=== PATIENT | female | born 1955 | race Caucasian/White ===

== ENCOUNTER 2017-04-14 15:07 | Inpatient (IN) | payer BC ==
[~2017-04-14] VITALS: Ht 162.5 cm; Wt 118.6 kg
--- NOTE | ~2017-04-14 | WRIGHTHP ---
[place], [place] PATIENT HISTORY AND PHYSICAL EXAM [facility]: [id number] UNIT #: [id number] ROOM: 428 DOCTOR: ELADIA CISNEROS MD BIRTHDATE: [birth year] DOS: 04/14/2017 HISTORY OF PRESENT ILLNESS: A 62-year-old. The patient has not been since seen in the office for about 7 years, was brought to the Emergency Room by family member stating that she is unable to walk. The patient has had significant weight loss in the last few months and has a history of diabetes, but has not been taking care of herself. Appetite is poor. She does not have any complaints of chest pain, palpitations or shortness of breath. Does not have any fever or chills. Denies having any chest pains, palpitations. She does not have any fever, chills, does not have any urinary symptoms. She feels that her feet are quite normal and she is unable to walk. She has to hold onto either furniture or people to get around. PAST MEDICAL HISTORY: Significant for history of type 2 diabetes mellitus, has not checked it for many years now. SOCIAL HISTORY: She works in a [employer] company. She is , has one son. FAMILY HISTORY: Significant for parents who have underlying heart disease. PHYSICAL EXAMINATION: GENERAL: She is awake and alert and oriented. VITAL SIGNS: Graph trend shows blood pressure 160/90, pulse 100, respirations 18, temperature 98.0. LUNGS: Diminished breath sounds. No wheezes, rales or rhonchi heard today. HEART: Regular. ABDOMEN: Obese, soft, nontender. EXTREMITIES: Without any edema. NEUROLOGIC: Right foot drop noted. Sensory disturbances in both feet. No other neurological deficits noted. She is awake and alert and oriented, answers questions appropriately. LABORATORY DATA: WBC count is 9.6, hemoglobin 14.6, hematocrit 42.2, platelets 200. Rapid flu negative. Hemoglobin A1c is 8.4. CT of the head shows mild to moderate bifrontal atrophy, chronic small vessel ischemic changes. Chest x-ray unremarkable. ASSESSMENT AND PLAN: 1. The patient who comes in with inability to ambulate. The patient is admitted and PT, OT consultation has been obtained. 2. Right-sided foot drop with sensory neuropathy, peripheral. We will order an MRI of the lumbosacral spine to rule out space occupying lesion. This could be peripheral neuropathy from diabetes, poorly controlled. 3. Benign hypertension noted, started on low dose FAYE inhibitors. 4. Type 2 diabetes mellitus. Hemoglobin A1c 8.4, poorly controlled, add metformin. [place], [place] PATIENT HISTORY AND PHYSICAL EXAM NAME: PAU PERRY UNIT #: [id number] ROOM: [facility] DOCTOR: ELADIA CISNEROS MD BIRTHDATE: [birth year] ELADIA CISNEROS MD CM:HISPHYS:PATIENT HISTORY AND PHYSICAL EXAMINATION 0 5 ELADIA CISNEROS MD 04/15/17924 interface
[2017-04-14 15:12] VITALS: BP 184/99
[2017-04-14 16:16] LABS: BASO % 0.4 % (0.0-1.0); EOS # 0.1 10*3/uL (0.0-0.4); EOS % 0.8 % (1.0-4.0); HEMATOCRIT 42.2 % (37.0-47.0); HEMOGLOBIN 14.6 g/dl (12.0-16.0); LYMPH # 1.9 10*3/uL (1.3-4.4); LYMPH % 20.1 % (27.0-41.0); MEAN CELL VOLUME 83.9 fl (81.0-99.0); MEAN CORPUSCULAR HGB CONC 34.6 g/dl (33.0-37.0); MEAN PLATELET VOLUME 10.9 fl (9.6-12.3); MONO # 0.6 10*3/uL (0.1-1.0); MONO % 5.8 % (3.0-9.0); NEUT # 6.9 10*3/uL (2.3-7.9); NEUT % 72.5 % (47.0-73.0); PLATELET COUNT AUTOMATED 200 10*3/uL (130-400); RED BLOOD COUNT 5.03 10*6/uL (4.10-5.10); RED CELL DISTRI WIDTH 13.2 % (0-14.5); WHITE BLOOD COUNT 9.6 10*3/uL (4.8-10.8)
[2017-04-14 16:35] LABS: ALBUMIN 3.5 gm/dl (3.1-4.5); ALKALINE PHOSPHATASE 131 U/L (45-117); BUN 11 mg/dl (7-24); CHLORIDE 104 mmol/L (98-107); CREATININE 0.63 mg/dL (0.55-1.02); FREE T4 1.34 ng/dl (0.76-1.46); POTASSIUM 4.5 mmol/L (3.5-5.1); SGOT/AST 9 IU/L (3-35); SGPT/ALT 17 U/L (12-78); SODIUM 139 mmol/L (136-145); TOTAL PROTEIN 7.2 gm/dL (6.4-8.2)
[2017-04-14 16:39] LABS: TROPONIN I < 0.015 ng/ml (<0.045)
[2017-04-14 16:42] LABS: THYROID STIM HORMONE (HS) 0.913 uIU/ml (0.358-4.75)
[2017-04-14 17:33] VITALS: BP 151/90
[2017-04-14 18:59] VITALS: BP 158/76
[2017-04-14 20:10] VITALS: BP 158/80
[2017-04-15] VITALS: BP 169/87
[2017-04-15 04:00] VITALS: BP 157/79
[2017-04-15 07:24] VITALS: BP 160/90
[2017-04-15 07:30] VITALS: BP 160/90
[2017-04-15] MEDS ORDERED: METFORMIN500 MG PO (09:05)
[2017-04-15 09:25] LABS: BILIRUBIN NEGATIVE (NEGATIVE); BLOOD 1+ (NEGATIVE); CLARITY SL CLOUDY (CLEAR); COLOR YELLOW (YELLOW); GLUCOSE TRACE (NEGATIVE); KETONE 1+ (NEGATIVE); LEUKO ESTERASE NEGATIVE (NEGATIVE); NITRITE NEGATIVE (NEGATIVE); PH 5.5 (5.0-9.0); SPECIFIC GRAVITY >= 1.030 (1.005-1.030)
[2017-04-15 09:35] LABS: BACTERIA 2+; EPITHELIAL CELLS 16-20
[2017-04-15] MEDS ORDERED: NEURONTIN300 MG PO (09:54)
== END 2017-04-15 10:55 | disposition home or self-care (01) | DRG 74 ==
LOC: ED 15:07 → EDHOLD 19:08 → 4E 19:30
PROVIDERS: Physician Assistant
DX: E11.42 Type 2 diabetes mellitus with diabetic polyneuropathy (principal); E11.65 Type 2 diabetes mellitus with hyperglycemia; F41.9 Anxiety disorder, unspecified; M21.371 Foot drop, right foot; I10 Essential (primary) hypertension; Z83.2 Family history of diseases of the blood and blood-forming organs and certain disorders involving the immune mechanism; Z79.4 Long term (current) use of insulin; Z82.49 Family history of ischemic heart disease and other diseases of the circulatory system

== ENCOUNTER → 2017-05-23 | Outpatient (CLI) | payer OTHER ==
[~2017-05-23] MED LIST: METFORMIN500 MG PO; NEURONTIN300 MG PO
== END | disposition home or self-care (01) ==
LOC: US 13:19
DX: I65.23 Occlusion and stenosis of bilateral carotid arteries (principal); E04.1 Nontoxic single thyroid nodule

== ENCOUNTER → 2017-06-27 | Outpatient (CLI) | payer OTHER ==
[2017-06-27 09:48] LABS: BUN 10 mg/dl (7-24); CHLORIDE 105 mmol/L (98-107); POTASSIUM 4.2 mmol/L (3.5-5.1); SODIUM 140 mmol/L (136-145)
== END | disposition home or self-care (01) ==
LOC: CT 06-19 08:00 → US 06-19 09:30 → LAB 08:42 → CT 09:00
PROVIDERS: Internal Medicine
DX: Z13.9 Encounter for screening, unspecified (principal); E04.1 Nontoxic single thyroid nodule; I63.312 Cerebral infarction due to thrombosis of left middle cerebral artery

== ENCOUNTER → 2017-07-04 | Outpatient (CLI) | payer OTHER | END | disposition home or self-care (01) | LOC: CARD 00:25 | DX: I51.7 Cardiomegaly (principal); I63.312 Cerebral infarction due to thrombosis of left middle cerebral artery ==

== ENCOUNTER → 2017-07-07 | Outpatient (CLI) | payer OTHER ==
[2017-07-07 11:38] LABS: ACT PARTIAL THROMBO TIME 20.9 SECONDS (20.8-31.5)
== END | disposition home or self-care (01) ==
LOC: LAB 10:31 → EDSTATUS 11:00 → SDC 11:00
PROVIDERS: Internal Medicine
DX: E04.1 Nontoxic single thyroid nodule (principal); I10 Essential (primary) hypertension; E11.42 Type 2 diabetes mellitus with diabetic polyneuropathy; G31.09 Other frontotemporal neurocognitive disorder

== ENCOUNTER 2021-04-19 16:30 | Inpatient (IN) | payer MEDICARE, MEDICAID ==
[~2021-04-19] VITALS: Ht 167.6 cm; Wt 130.4 kg
[2021-04-19 16:36] VITALS: BP 156/89
[2021-04-19 18:14] LABS: BASO # 0.1 10*3/uL (0.0-0.1); BASO % 0.5 % (0.0-1.0); EOS # 0.1 10*3/uL (0.0-0.4); EOS % 0.5 % (1.0-4.0); HEMATOCRIT 39.2 % (37.0-47.0); LYMPH # 1.3 10*3/uL (1.3-4.4); LYMPH % 10.2 % (27.0-41.0); MEAN CELL VOLUME 86.3 fl (81.0-99.0); MEAN CORPUSCULAR HGB 29.3 pg (27.0-31.0); MEAN CORPUSCULAR HGB CONC 33.9 g/dl (33.0-37.0); MEAN PLATELET VOLUME 10.8 fl (9.6-12.3); MONO # 0.8 10*3/uL (0.1-1.0); MONO % 6.5 % (3.0-9.0); NEUT % 81.6 % (47.0-73.0); PLATELET COUNT AUTOMATED 222 10*3/uL (130-400); RED BLOOD COUNT 4.54 10*6/uL (4.10-5.10); RED CELL DISTRI WIDTH 12.6 % (0-14.5); WHITE BLOOD COUNT 12.2 10*3/uL (4.8-10.8)
[2021-04-19 18:39] LABS: ALBUMIN 2.7 gm/dl (3.1-4.5); ALKALINE PHOSPHATASE 180 U/L (45-117); BUN 14 mg/dl (7-24); CHLORIDE 102 mmol/L (98-107); CREATININE 0.79 mg/dL (0.55-1.02); POTASSIUM 4.4 mmol/L (3.5-5.1); SGOT/AST 13 IU/L (3-35); SGPT/ALT 24 U/L (12-78); SODIUM 133 mmol/L (136-145); TOTAL PROTEIN 7.4 gm/dL (6.4-8.2)
[2021-04-19 20:15] LABS: BILIRUBIN Negative (Negative); BLOOD 1+ (Negative); CLARITY Cloudy (Clear); COLOR Yellow (Yellow); GLUCOSE 3+ (Negative); KETONE 1+ (Negative); LEUKO ESTERASE Negative (Negative); NITRITE Positive (Negative); SPECIFIC GRAVITY >= 1.030 (1.001-1.030)
[2021-04-19 20:27] LABS: BACTERIA 4+; RBC 0-2 rbc/hpf (0-2); WBC 16-20 wbc/hpf (0-5); YEAST 1+
[2021-04-19 21:37] VITALS: BP 173/78
[2021-04-19] MEDS ORDERED: LASIX20 MG PO (21:48)
[2021-04-19] MEDS ORDERED: LOPRESSOR25 MG PO (21:49)
[2021-04-19] MEDS ORDERED: METFORMIN HYDR500 MG PO (21:50)
[2021-04-19] MEDS ORDERED: PAROXETINE HCL40 MG PO (21:50)
[2021-04-19] MEDS ORDERED: KLOR-CON 1010 ME1 PO (21:53)
[2021-04-19 22:30] VITALS: BP 148/68; BP 148/81
[2021-04-20] VITALS (8 sets, daily range): BP systolic 113–168; BP diastolic 54–91
[2021-04-20 06:04] LABS: ALBUMIN 2.6 gm/dl (3.1-4.5); ALKALINE PHOSPHATASE 159 U/L (45-117); BUN 12 mg/dl (7-24); CHLORIDE 102 mmol/L (98-107); CREATININE 0.76 mg/dL (0.55-1.02); FREE T4 1.45 ng/dl (0.76-1.46); POTASSIUM 4.2 mmol/L (3.5-5.1); SGOT/AST 6 IU/L (3-35); SGPT/ALT 22 U/L (12-78); SODIUM 133 mmol/L (136-145); TOTAL PROTEIN 6.9 gm/dL (6.4-8.2)
[2021-04-20 06:25] LABS: BASO # 0.1 10*3/uL (0.0-0.1); BASO % 0.6 % (0.0-1.0); EOS # 0.1 10*3/uL (0.0-0.4); EOS % 0.8 % (1.0-4.0); HEMATOCRIT 37.2 % (37.0-47.0); LYMPH # 1.2 10*3/uL (1.3-4.4); LYMPH % 10.1 % (27.0-41.0); MEAN CELL VOLUME 86.9 fl (81.0-99.0); MEAN CORPUSCULAR HGB 29.2 pg (27.0-31.0); MEAN CORPUSCULAR HGB CONC 33.6 g/dl (33.0-37.0); MEAN PLATELET VOLUME 11.1 fl (9.6-12.3); MONO # 0.9 10*3/uL (0.1-1.0); MONO % 7.5 % (3.0-9.0); NEUT # 9.4 10*3/uL (2.3-7.9); NEUT % 80.4 % (47.0-73.0); PLATELET COUNT AUTOMATED 198 10*3/uL (130-400); RED BLOOD COUNT 4.28 10*6/uL (4.10-5.10); RED CELL DISTRI WIDTH 12.7 % (0-14.5); WHITE BLOOD COUNT 11.7 10*3/uL (4.8-10.8)
[2021-04-20 06:44] LABS: ACT PARTIAL THROMBO TIME 29.3 SECONDS (20.0-32.1)
[2021-04-21] VITALS: BP 136/64
[2021-04-21 08:00] VITALS: BP 139/50
[2021-04-21 09:24] LABS: BASO # 0.1 10*3/uL (0.0-0.1); BASO % 0.7 % (0.0-1.0); EOS # 0.4 10*3/uL (0.0-0.4); EOS % 3.7 % (1.0-4.0); HEMATOCRIT 37.3 % (37.0-47.0); LYMPH # 1.2 10*3/uL (1.3-4.4); LYMPH % 12.4 % (27.0-41.0); MEAN CELL VOLUME 87.8 fl (81.0-99.0); MEAN CORPUSCULAR HGB 29.4 pg (27.0-31.0); MEAN CORPUSCULAR HGB CONC 33.5 g/dl (33.0-37.0); MEAN PLATELET VOLUME 10.2 fl (9.6-12.3); MONO # 0.7 10*3/uL (0.1-1.0); NEUT # 7.3 10*3/uL (2.3-7.9); NEUT % 75.5 % (47.0-73.0); PLATELET COUNT AUTOMATED 198 10*3/uL (130-400); RED BLOOD COUNT 4.25 10*6/uL (4.10-5.10); RED CELL DISTRI WIDTH 12.9 % (0-14.5); WHITE BLOOD COUNT 9.7 10*3/uL (4.8-10.8)
[2021-04-21 09:39] LABS: ALBUMIN 2.3 gm/dl (3.1-4.5); CREATININE 1.28 mg/dL (0.55-1.02); POTASSIUM 4.2 mmol/L (3.5-5.1); TOTAL PROTEIN 6.6 gm/dL (6.4-8.2)
[2021-04-21 12:00] VITALS: BP 117/48
[2021-04-21 16:00] VITALS: BP 130/66
[2021-04-21 20:00] VITALS: BP 152/75
[2021-04-22] VITALS: BP 151/54
[2021-04-22 06:14] LABS: BASO # 0.1 10*3/uL (0.0-0.1); BASO % 0.8 % (0.0-1.0); EOS # 0.5 10*3/uL (0.0-0.4); EOS % 5.9 % (1.0-4.0); HEMATOCRIT 34.5 % (37.0-47.0); LYMPH # 1.8 10*3/uL (1.3-4.4); LYMPH % 19.8 % (27.0-41.0); MEAN CORPUSCULAR HGB 29.3 pg (27.0-31.0); MEAN CORPUSCULAR HGB CONC 33.3 g/dl (33.0-37.0); MEAN PLATELET VOLUME 11.2 fl (9.6-12.3); MONO # 0.8 10*3/uL (0.1-1.0); MONO % 8.3 % (3.0-9.0); NEUT # 5.8 10*3/uL (2.3-7.9); NEUT % 64.3 % (47.0-73.0); PLATELET COUNT AUTOMATED 191 10*3/uL (130-400); RED BLOOD COUNT 3.92 10*6/uL (4.10-5.10); RED CELL DISTRI WIDTH 12.8 % (0-14.5)
[2021-04-22 06:32] LABS: POTASSIUM 4.1 mmol/L (3.5-5.1)
[2021-04-22 06:40] LABS: CREATININE 1.96 mg/dL (0.55-1.02)
[2021-04-22 12:00] VITALS: BP 127/58
[2021-04-22 16:00] VITALS: BP 122/63; BP 131/63
[2021-04-22 20:00] VITALS: BP 136/85
[2021-04-23] VITALS: BP 141/52
[2021-04-23 06:49] LABS: CREATININE 2.5 mg/dL (0.55-1.02); POTASSIUM 4.4 mmol/L (3.5-5.1)
[2021-04-23 08:31] VITALS: BP 157/77
[2021-04-23 12:45] VITALS: BP 143/80
[2021-04-23 13:17] LABS: BILIRUBIN Negative (Negative); BLOOD 3+ (Negative); CLARITY Turbid (Clear); COLOR Yellow (Yellow); GLUCOSE Negative (Negative); KETONE Negative (Negative); LEUKO ESTERASE 2+ (Negative); NITRITE Negative (Negative)
[2021-04-23 13:36] LABS: URINE CREATININE RANDOM 64.5 mg/dL
[2021-04-23 13:52] LABS: EPITHELIAL CELLS TNTC; RBC 21-30 rbc/hpf (0-2); WBC 21-30 wbc/hpf (0-5)
[2021-04-23 16:00] VITALS: BP 135/68
[2021-04-23 20:00] VITALS: BP 158/79
[2021-04-24 00:48] VITALS: BP 137/76
[2021-04-24 06:18] LABS: BASO # 0.1 10*3/uL (0.0-0.1); BASO % 0.9 % (0.0-1.0); EOS # 0.3 10*3/uL (0.0-0.4); EOS % 3.6 % (1.0-4.0); HEMATOCRIT 32.2 % (37.0-47.0); LYMPH # 1.4 10*3/uL (1.3-4.4); LYMPH % 17.5 % (27.0-41.0); MEAN CORPUSCULAR HGB 29.5 pg (27.0-31.0); MEAN CORPUSCULAR HGB CONC 33.5 g/dl (33.0-37.0); MEAN PLATELET VOLUME 11.2 fl (9.6-12.3); MONO # 0.8 10*3/uL (0.1-1.0); MONO % 10.3 % (3.0-9.0); NEUT # 5.2 10*3/uL (2.3-7.9); NEUT % 66.8 % (47.0-73.0); PLATELET COUNT AUTOMATED 176 10*3/uL (130-400); RED BLOOD COUNT 3.66 10*6/uL (4.10-5.10); RED CELL DISTRI WIDTH 12.6 % (0-14.5); WHITE BLOOD COUNT 7.8 10*3/uL (4.8-10.8)
[2021-04-24 06:19] LABS: POTASSIUM 4.4 mmol/L (3.5-5.1)
[2021-04-24 06:42] LABS: CREATININE 2.82 mg/dL (0.55-1.02)
[2021-04-24 08:00] VITALS: BP 121/49; BP 139/59
[2021-04-24 12:00] VITALS: BP 134/90
[2021-04-24 16:00] VITALS: BP 140/70
[2021-04-24 20:00] VITALS: BP 153/80
[2021-04-25] VITALS: BP 137/63
[2021-04-25 06:11] LABS: CREATININE 2.9 mg/dL (0.55-1.02); POTASSIUM 4.3 mmol/L (3.5-5.1)
[2021-04-25 06:45] LABS: BASO # 0.1 10*3/uL (0.0-0.1); BASO % 0.9 % (0.0-1.0); EOS # 0.2 10*3/uL (0.0-0.4); EOS % 2.6 % (1.0-4.0); HEMATOCRIT 34.3 % (37.0-47.0); LYMPH # 1.1 10*3/uL (1.3-4.4); LYMPH % 13.3 % (27.0-41.0); MEAN CELL VOLUME 89.3 fl (81.0-99.0); MEAN CORPUSCULAR HGB 29.4 pg (27.0-31.0); MEAN CORPUSCULAR HGB CONC 32.9 g/dl (33.0-37.0); MEAN PLATELET VOLUME 11.3 fl (9.6-12.3); MONO # 0.7 10*3/uL (0.1-1.0); MONO % 8.8 % (3.0-9.0); NEUT % 73.3 % (47.0-73.0); PLATELET COUNT AUTOMATED 188 10*3/uL (130-400); RED BLOOD COUNT 3.84 10*6/uL (4.10-5.10); RED CELL DISTRI WIDTH 12.7 % (0-14.5); WHITE BLOOD COUNT 8.2 10*3/uL (4.8-10.8)
[2021-04-25 08:00] VITALS: BP 157/78
[2021-04-25 12:00] VITALS: BP 159/90
== END 2021-04-25 14:33 | disposition home or self-care (01) | DRG 853 ==
LOC: ED 16:30 → 4E 21:51 → EDHOLD 21:51 → 4E 22:49
PROVIDERS: Family Medicine; Internal Medicine; Physician Assistant; Student in an Organized Health Care Education/Training Program; ADMIT Student in an Organized Health Care Education/Training Program; ATTEND Student in an Organized Health Care Education/Training Program
PROC: 0W920ZZ Drainage of Face, Open Approach (ICD-10-PCS; principal; 2021-04-20)
DX: A41.9 Sepsis, unspecified organism (principal); N17.0 Acute kidney failure with tubular necrosis; E43 Unspecified severe protein-calorie malnutrition; L02.11 Cutaneous abscess of neck; L03.221 Cellulitis of neck; E87.1 Hypo-osmolality and hyponatremia; Z68.42 Body mass index [BMI] 45.0-49.9, adult; I10 Essential (primary) hypertension; E11.65 Type 2 diabetes mellitus with hyperglycemia; E11.21 Type 2 diabetes mellitus with diabetic nephropathy; E66.01 Morbid (severe) obesity due to excess calories; E83.39 Other disorders of phosphorus metabolism; D64.9 Anemia, unspecified; Z86.73 Personal history of transient ischemic attack (TIA), and cerebral infarction without residual deficits; Z82.49 Family history of ischemic heart disease and other diseases of the circulatory system; Z79.899 Other long term (current) drug therapy; Z98.891 History of uterine scar from previous surgery

== ENCOUNTER → 2021-05-01 | Outpatient (CLI) | payer MEDICARE, MEDICAID ==
[~2021-05-01] MED LIST changes: +KLOR-CON 1010 ME1 PO; +LASIX20 MG PO; +LOPRESSOR25 MG PO; +METFORMIN HYDR500 MG PO; +PAROXETINE HCL40 MG PO
== END ==
LOC: WOUNDCARE 01:55
PROVIDERS: ATTEND Nurse Practitioner Primary Care
DX: T81.89XA Other complications of procedures, not elsewhere classified, initial encounter (principal); L02.01 Cutaneous abscess of face; L73.1 Pseudofolliculitis barbae; E11.21 Type 2 diabetes mellitus with diabetic nephropathy; I10 Essential (primary) hypertension; M48.00 Spinal stenosis, site unspecified; Z90.710 Acquired absence of both cervix and uterus; Z86.73 Personal history of transient ischemic attack (TIA), and cerebral infarction without residual deficits; Y83.8 Other surgical procedures as the cause of abnormal reaction of the patient, or of later complication, without mention of misadventure at the time of the procedure; Y92.238 Other place in hospital as the place of occurrence of the external cause

== ENCOUNTER → 2021-10-25 | Outpatient (CLI) | payer OTHER ==
[2021-10-25 09:00] LABS: BASO # 0.1 10*3/uL (0.0-0.1); BASO % 0.7 % (0.0-1.0); EOS # 0.3 10*3/uL (0.0-0.4); EOS % 4.3 % (1.0-4.0); HEMATOCRIT 39.4 % (37.0-47.0); LYMPH # 1.4 10*3/uL (1.3-4.4); MEAN CELL VOLUME 86.6 fl (81.0-99.0); MEAN CORPUSCULAR HGB 29.5 pg (27.0-31.0); MEAN PLATELET VOLUME 11.1 fl (9.6-12.3); MONO # 0.5 10*3/uL (0.1-1.0); MONO % 6.5 % (3.0-9.0); NEUT # 4.7 10*3/uL (2.3-7.9); NEUT % 67.8 % (47.0-73.0); PLATELET COUNT AUTOMATED 167 10*3/uL (130-400); RED BLOOD COUNT 4.55 10*6/uL (4.10-5.10); RED CELL DISTRI WIDTH 13.3 % (0-14.5)
[2021-10-25 09:02] LABS: BILIRUBIN Negative (Negative); BLOOD Negative (Negative); CLARITY Clear (Clear); COLOR Yellow (Yellow); GLUCOSE 2+ (Negative); KETONE Negative (Negative); LEUKO ESTERASE Negative (Negative); NITRITE Negative (Negative)
[2021-10-25 09:19] LABS: URINE CREATININE RANDOM 68.8 mg/dL
[2021-10-25 09:21] LABS: BACTERIA TRACE; RBC 0-2 rbc/hpf (0-2)
[2021-10-25 09:25] LABS: BUN 17 mg/dl (7-24); CHLORIDE 103 mmol/L (98-107); CREATININE 0.75 mg/dL (0.55-1.02); IRON 86 ug/dL (50-170); POTASSIUM 4.5 mmol/L (3.5-5.1); SODIUM 134 mmol/L (136-145)
[2021-10-25 09:57] LABS: FERRITIN 88.7 ng/mL (10.0-291.0)
== END | disposition home or self-care (01) ==
LOC: LAB 08:26
PROVIDERS: ATTEND Internal Medicine Nephrology
DX: E11.9 Type 2 diabetes mellitus without complications (principal); N25.81 Secondary hyperparathyroidism of renal origin; D63.1 Anemia in chronic kidney disease; N17.9 Acute kidney failure, unspecified

== ENCOUNTER → 2022-02-22 | Outpatient (CLI) | payer OTHER | END | disposition home or self-care (01) | LOC: ORTHO 00:41 | PROVIDERS: ATTEND Orthopaedic Surgery | DX: M77.32 Calcaneal spur, left foot (principal); I70.90 Unspecified atherosclerosis ==

== ENCOUNTER 2023-01-22 17:08 | Inpatient (IN) | payer MEDICARE ==
[~2023-01-22] VITALS: Ht 160 cm; Wt 92.1 kg
[~2023-01-22 17:08] MED LIST changes: +AMOX-CLAV 875-1 EACH PO; +ASPIRIN ADULT L81 M1 PO; +BUSPIRONE10 MG PO; +Bromocriptine2.5 MG PO; +CITALOPRAM20 MG PO; +COZAAR50 M1 PO; +LANTUS SOL100 UNIT/1 SC; +LIPITOR40 MG PO; +NATURE'S BLEND F1 MG PO; +PAXLOVID 300-11 EAC2 PO; +POTASSIUM CHLO10 ME4 PO; +SENOKOT8.6 MG PO; +TOPROL XL50 M1 PO; +VITAMIN D350 MC2 PO
[2023-01-22 17:34] VITALS: BP 110/62
[2023-01-22 18:51] VITALS: BP 112/62
[2023-01-22 19:13] LABS: BASO % 0.5 % (0.0-1.0); EOS # 0.2 10*3/uL (0.0-0.4); HEMATOCRIT 32.7 % (37.0-47.0); LYMPH # 0.8 10*3/uL (1.3-4.4); MEAN CELL VOLUME 88.6 fl (81.0-99.0); MEAN CORPUSCULAR HGB CONC 32.7 g/dl (33.0-37.0); MEAN PLATELET VOLUME 11.2 fl (9.6-12.3); MONO # 0.8 10*3/uL (0.1-1.0); MONO % 9.6 % (3.0-9.0); NEUT # 6.4 10*3/uL (2.3-7.9); NEUT % 77.3 % (47.0-73.0); PLATELET COUNT AUTOMATED 164 10*3/uL (130-400); RED BLOOD COUNT 3.69 10*6/uL (4.10-5.10); RED CELL DISTRI WIDTH 13.6 % (0-14.5); WHITE BLOOD COUNT 8.3 10*3/uL (4.8-10.8)
[2023-01-22 19:32] VITALS: BP 95/38
[2023-01-22 19:37] LABS: POTASSIUM 4.5 mmol/L (3.4-5.1); TOTAL PROTEIN 6.7 gm/dL (6.0-8.0)
[2023-01-22 21:15] LABS: BILIRUBIN Negative (Negative); BLOOD Negative (Negative); CLARITY Clear (Clear); COLOR Yellow (Yellow); GLUCOSE Negative (Negative); KETONE Trace (Negative); LEUKO ESTERASE Trace (Negative); NITRITE Positive (Negative); SPECIFIC GRAVITY 1.015 (1.001-1.030); UROBILINOGEN 0.2 E.U./dl (0.0-1.0)
[2023-01-22 21:22] LABS: BACTERIA 3+; WBC 16-20 wbc/hpf (0-5)
[2023-01-23] VITALS (9 sets, daily range): BP systolic 102–146; BP diastolic 42–71
[2023-01-23 06:10] LABS: BASO # 0.1 10*3/uL (0.0-0.1); BASO % 0.9 % (0.0-1.0); EOS # 0.2 10*3/uL (0.0-0.4); EOS % 3.6 % (1.0-4.0); HEMATOCRIT 31.4 % (37.0-47.0); LYMPH # 1.4 10*3/uL (1.3-4.4); LYMPH % 26.7 % (27.0-41.0); MEAN CELL VOLUME 90.2 fl (81.0-99.0); MEAN CORPUSCULAR HGB 28.4 pg (27.0-31.0); MEAN CORPUSCULAR HGB CONC 31.5 g/dl (33.0-37.0); MEAN PLATELET VOLUME 11.7 fl (9.6-12.3); MONO # 0.6 10*3/uL (0.1-1.0); MONO % 11.7 % (3.0-9.0); NEUT % 56.7 % (47.0-73.0); PLATELET COUNT AUTOMATED 137 10*3/uL (130-400); RED BLOOD COUNT 3.48 10*6/uL (4.10-5.10); RED CELL DISTRI WIDTH 13.8 % (0-14.5); WHITE BLOOD COUNT 5.3 10*3/uL (4.8-10.8)
[2023-01-23 06:28] LABS: FREE T4 1.09 ng/dl (0.89-1.76); POTASSIUM 4.2 mmol/L (3.4-5.1)
[2023-01-23 06:57] LABS: VITAMIN D, 25-HYDROXY 42.4 ng/mL (30-100)
[2023-01-23] MEDS ORDERED: ATIVAN0.5 MG PO (10:34)
[2023-01-23] MEDS ORDERED: BUMETANIDE2 MG PO (10:40)
[2023-01-23] MEDS ORDERED: DIVALPROEX SOD125 M1 PO (10:41)
[2023-01-23] MEDS ORDERED: DULOXETINE HCL30 MG PO (10:41)
[2023-01-23] MEDS ORDERED: HUMALOG100 UNIT/2 SC (15:59)
[2023-01-23] MEDS ORDERED: GLUCAGON EMERGEN1 M1 IJ (16:01)
[2023-01-24] VITALS: BP 105/56
[2023-01-24 06:11] LABS: CHLORIDE 108 mmol/L (98-107); POTASSIUM 4.4 mmol/L (3.4-5.1)
[2023-01-24 06:12] LABS: BUN 23 mg/dl (9-23)
[2023-01-24 06:20] LABS: BASO % 0.4 % (0.0-1.0); EOS # 0.2 10*3/uL (0.0-0.4); EOS % 3.3 % (1.0-4.0); HEMATOCRIT 28.5 % (37.0-47.0); LYMPH # 1.5 10*3/uL (1.3-4.4); LYMPH % 21.5 % (27.0-41.0); MEAN CELL VOLUME 89.9 fl (81.0-99.0); MEAN CORPUSCULAR HGB CONC 32.3 g/dl (33.0-37.0); MEAN PLATELET VOLUME 11.6 fl (9.6-12.3); MONO # 0.6 10*3/uL (0.1-1.0); MONO % 8.6 % (3.0-9.0); NEUT # 4.5 10*3/uL (2.3-7.9); NEUT % 65.9 % (47.0-73.0); PLATELET COUNT AUTOMATED 130 10*3/uL (130-400); RED BLOOD COUNT 3.17 10*6/uL (4.10-5.10); RED CELL DISTRI WIDTH 13.7 % (0-14.5); WHITE BLOOD COUNT 6.9 10*3/uL (4.8-10.8)
[2023-01-24 12:00] VITALS: BP 94/53
[2023-01-25] VITALS: BP 103/44
[2023-01-25 08:00] VITALS: BP 149/65
[2023-01-25 08:09] LABS: BASO % 0.4 % (0.0-1.0); EOS # 0.3 10*3/uL (0.0-0.4); HEMATOCRIT 31.3 % (37.0-47.0); LYMPH # 1.2 10*3/uL (1.3-4.4); LYMPH % 15.3 % (27.0-41.0); MEAN CORPUSCULAR HGB 29.1 pg (27.0-31.0); MEAN CORPUSCULAR HGB CONC 31.9 g/dl (33.0-37.0); MONO # 0.5 10*3/uL (0.1-1.0); NEUT # 5.5 10*3/uL (2.3-7.9); NEUT % 72.8 % (47.0-73.0); PLATELET COUNT AUTOMATED 126 10*3/uL (130-400); RED BLOOD COUNT 3.44 10*6/uL (4.10-5.10); RED CELL DISTRI WIDTH 13.5 % (0-14.5); WHITE BLOOD COUNT 7.6 10*3/uL (4.8-10.8)
[2023-01-25 08:31] LABS: BUN 22 mg/dl (9-23); CHLORIDE 107 mmol/L (98-107); POTASSIUM 4.2 mmol/L (3.4-5.1)
[2023-01-25 16:00] VITALS: BP 125/63
[2023-01-25 20:00] VITALS: BP 129/80
[2023-01-26] VITALS: BP 152/68
[2023-01-26 08:00] VITALS: BP 126/62
[2023-01-26 09:31] LABS: ALKALINE PHOSPHATASE 95 U/L (46-116); BUN 15 mg/dl (9-23); CHLORIDE 106 mmol/L (98-107); POTASSIUM 4.5 mmol/L (3.4-5.1); SGPT/ALT 8 U/L (5-49); TOTAL PROTEIN 5.9 gm/dL (6.0-8.0)
[2023-01-26 10:27] LABS: BASO % 0.3 % (0.0-1.0); EOS # 0.1 10*3/uL (0.0-0.4); EOS % 1.6 % (1.0-4.0); HEMATOCRIT 30.4 % (37.0-47.0); LYMPH # 1.5 10*3/uL (1.3-4.4); LYMPH % 21.5 % (27.0-41.0); MEAN CELL VOLUME 88.6 fl (81.0-99.0); MEAN CORPUSCULAR HGB 28.6 pg (27.0-31.0); MEAN CORPUSCULAR HGB CONC 32.2 g/dl (33.0-37.0); MEAN PLATELET VOLUME 11.1 fl (9.6-12.3); MONO # 0.5 10*3/uL (0.1-1.0); NEUT # 4.8 10*3/uL (2.3-7.9); NEUT % 69.3 % (47.0-73.0); PLATELET COUNT AUTOMATED 138 10*3/uL (130-400); RED BLOOD COUNT 3.43 10*6/uL (4.10-5.10); RED CELL DISTRI WIDTH 13.2 % (0-14.5)
[2023-01-26 12:00] VITALS: BP 111/50
[2023-01-26 16:00] VITALS: BP 143/64
[2023-01-26 22:00] VITALS: BP 160/61
[2023-01-27] VITALS: BP 119/64
[2023-01-27 08:00] VITALS: BP 138/76
[2023-01-27 11:18] VITALS: BP 138/70
== END 2023-01-27 13:55 | DRG 177 ==
LOC: ED 17:08 → 4E 21:49 → EDHOLD 21:49 → 4E 01-23 12:27
PROVIDERS: Emergency Medicine; Family Medicine; Student in an Organized Health Care Education/Training Program; ADMIT Internal Medicine; ATTEND Internal Medicine
PROC: XW033E5 Introduction of Remdesivir Anti-infective into Peripheral Vein, Percutaneous Approach, New Technology Group 5 (ICD-10-PCS; principal; 2023-01-23)
PROC: 0HQLXZZ Repair Left Lower Leg Skin, External Approach (ICD-10-PCS; 2023-01-23)
DX: U07.1 COVID-19 (principal); G93.41 Metabolic encephalopathy; N17.9 Acute kidney failure, unspecified; E44.0 Moderate protein-calorie malnutrition; N30.00 Acute cystitis without hematuria; I13.0 Hypertensive heart and chronic kidney disease with heart failure and stage 1 through stage 4 chronic kidney disease, or unspecified chronic kidney disease; I50.32 Chronic diastolic (congestive) heart failure; E87.3 Alkalosis; S81.812A Laceration without foreign body, left lower leg, initial encounter; X58.XXXA Exposure to other specified factors, initial encounter; E78.5 Hyperlipidemia, unspecified; I50.9 Heart failure, unspecified; E66.01 Morbid (severe) obesity due to excess calories; Z86.73 Personal history of transient ischemic attack (TIA), and cerebral infarction without residual deficits; R82.71 Bacteriuria; R82.81 Pyuria; E11.22 Type 2 diabetes mellitus with diabetic chronic kidney disease; N18.31 Chronic kidney disease, stage 3a; Z66 Do not resuscitate; S81.802A Unspecified open wound, left lower leg, initial encounter; S21.001A Unspecified open wound of right breast, initial encounter; S21.002A Unspecified open wound of left breast, initial encounter; L89.322 Pressure ulcer of left buttock, stage 2; E11.65 Type 2 diabetes mellitus with hyperglycemia; E55.9 Vitamin D deficiency, unspecified; F41.1 Generalized anxiety disorder; F32.9 Major depressive disorder, single episode, unspecified; E53.8 Deficiency of other specified B group vitamins; D64.9 Anemia, unspecified; Z88.1 Allergy status to other antibiotic agents; Z82.49 Family history of ischemic heart disease and other diseases of the circulatory system; Z84.89 Family history of other specified conditions; Y93.89 Activity, other specified; Y92.89 Other specified places as the place of occurrence of the external cause; Y99.8 Other external cause status; Z68.36 Body mass index [BMI] 36.0-36.9, adult

== ENCOUNTER → 2023-07-29 | Outpatient (CLI) | payer MEDICARE ==
[~2023-07-29] MED LIST changes: +ATIVAN0.5 MG PO; +BUMETANIDE2 MG PO; +DIVALPROEX SOD125 M1 PO; +DULOXETINE HCL30 MG PO; +GLUCAGON EMERGEN1 M1 IJ; +HUMALOG100 UNIT/2 SC
== END | disposition home or self-care (01) ==
LOC: US 13:30
PROVIDERS: ATTEND Student in an Organized Health Care Education/Training Program
DX: N95.0 Postmenopausal bleeding (principal)

== ENCOUNTER 2023-08-11 11:24 | Emergency (ER) | payer MEDICARE, OTHER ==
[~2023-08-11] VITALS: Wt 142.4 kg
[2023-08-11 11:56] LABS: BASO # 0.1 10*3/uL (0.0-0.1); BASO % 0.9 % (0.0-1.0); EOS # 0.2 10*3/uL (0.0-0.4); EOS % 2.4 % (1.0-4.0); HEMATOCRIT 32.3 % (37.0-47.0); LYMPH # 1.4 10*3/uL (1.3-4.4); LYMPH % 17.4 % (27.0-41.0); MEAN CORPUSCULAR HGB CONC 31.9 g/dl (33.0-37.0); MEAN PLATELET VOLUME 11.5 fl (9.6-12.3); MONO # 0.5 10*3/uL (0.1-1.0); MONO % 6.5 % (3.0-9.0); NEUT # 5.6 10*3/uL (2.3-7.9); NEUT % 72.3 % (47.0-73.0); PLATELET COUNT AUTOMATED 168 10*3/uL (130-400); RED BLOOD COUNT 3.55 10*6/uL (4.10-5.10); RED CELL DISTRI WIDTH 13.4 % (0-14.5); WHITE BLOOD COUNT 7.8 10*3/uL (4.8-10.8)
[2023-08-11 12:17] LABS: ALKALINE PHOSPHATASE 131 U/L (46-116); BUN 47 mg/dl (9-23); CHLORIDE 99 mmol/L (98-107); CPK 82 U/L (34-171); POTASSIUM 4.4 mmol/L (3.4-5.1); TOTAL PROTEIN 7.1 gm/dL (6.0-8.0)
[2023-08-11 12:21] LABS: SGPT/ALT < 7 U/L (5-49)
[2023-08-11] MEDS ORDERED: VIBRAMYCIN100 MG PO (13:05)
== END 2023-08-11 13:18 | disposition home or self-care (01) ==
LOC: ED 11:24
PROVIDERS: Physician Assistant Medical
DX: L03.116 Cellulitis of left lower limb (principal); L03.115 Cellulitis of right lower limb; F03.90 Unspecified dementia, unspecified severity, without behavioral disturbance, psychotic disturbance, mood disturbance, and anxiety; F41.9 Anxiety disorder, unspecified; I10 Essential (primary) hypertension; E11.9 Type 2 diabetes mellitus without complications; Z98.890 Other specified postprocedural states

== ENCOUNTER 2023-09-22 11:18 | Inpatient (IN) | payer MEDICARE, OTHER ==
[~2023-09-22] VITALS: Ht 157.4 cm; Wt 150.6 kg
[~2023-09-22 11:18] MED LIST changes: +VIBRAMYCIN100 MG PO
[2023-09-22 11:29] VITALS: BP 106/46
[2023-09-22 12:04] LABS: BASO # 0.1 10*3/uL (0.0-0.1); BASO % 0.5 % (0.0-1.0); EOS # 0.2 10*3/uL (0.0-0.4); EOS % 2.1 % (1.0-4.0); HEMATOCRIT 28.9 % (37.0-47.0); LYMPH # 1.2 10*3/uL (1.3-4.4); LYMPH % 13.5 % (27.0-41.0); MEAN CELL VOLUME 91.2 fl (81.0-99.0); MEAN CORPUSCULAR HGB 28.1 pg (27.0-31.0); MEAN CORPUSCULAR HGB CONC 30.8 g/dl (33.0-37.0); MEAN PLATELET VOLUME 10.9 fl (9.6-12.3); MONO # 0.6 10*3/uL (0.1-1.0); MONO % 6.9 % (3.0-9.0); NEUT # 6.9 10*3/uL (2.3-7.9); NEUT % 75.7 % (47.0-73.0); PLATELET COUNT AUTOMATED 180 10*3/uL (130-400); RED BLOOD COUNT 3.17 10*6/uL (4.10-5.10); RED CELL DISTRI WIDTH 13.5 % (0-14.5); WHITE BLOOD COUNT 9.1 10*3/uL (4.8-10.8)
[2023-09-22 12:29] LABS: POTASSIUM 4.4 mmol/L (3.4-5.1)
[2023-09-22 13:16] VITALS: BP 105/39
[2023-09-22] MEDS ORDERED: Vancomycin Hydrochloride 250 ML IV ONE (13:30)
[2023-09-22] MEDS ORDERED: Piperacillin Sodium/Tazobact 50 ML IV ONE (13:30)
[2023-09-22] MEDS ORDERED: BISACODYL 10 MG SUPP R PRN (14:15)
[2023-09-22] MEDS ORDERED: BISACODYL 5 MG TAB PO PRN (14:15)
[2023-09-22] MEDS ORDERED: Ondansetron Hydrochloride 4 MG/2 ML VIAL IV PRN (14:15)
[2023-09-22] MEDS ORDERED: DEXTROSE 10 % IN WATER 250 ML IV PRN (14:15)
[2023-09-22] MEDS ORDERED: Acetaminophen/Hydrocodone 5 MG/325 MG TABLET PO PRN (14:15)
[2023-09-22] MEDS ORDERED: ACETAMINOPHEN 650 MG SUPP R PRN (14:15)
[2023-09-22] MEDS ORDERED: Magnesium Hydroxide 30 ML UDC PO PRN (14:15)
[2023-09-22] MEDS ORDERED: MORPHINE Sulfate 2 MG/ML SYR IV PRN (14:15)
[2023-09-22] MEDS ORDERED: ACETAMINOPHEN 325 MG TAB PO PRN (14:15)
[2023-09-22] MEDS ORDERED: SODIUM CHLORIDE 0.9% 1,000 ML IV ONE (14:20)
[2023-09-22] MEDS ORDERED: VANCOMYCIN/WATER FOR INJ (PEG) 350 ML IV SCH (15:00)
[2023-09-22] MEDS ORDERED: Duloxetine Hydrochloride 30 MG CAP PO SCH (15:45)
[2023-09-22] MEDS ORDERED: Piperacillin Sodium/Tazobact 2.25 GM in SODIUM CHLORIDE 0.9% 50 ML IV SCH (16:00)
[2023-09-22] MEDS ORDERED: ALDACTONE25 MG PO (16:22)
[2023-09-22] MEDS ORDERED: INSULIN LISPRO 1 UNIT/0.01 ML SQ SCH (16:30)
[2023-09-22 17:20] VITALS: BP 152/82
[2023-09-22] MEDS ORDERED: VALPROIC ACID 250 MG CAP PO SCH (22:00)
[2023-09-22] MEDS ORDERED: HEPARIN SODIUM 5,000 UNIT/ML VIAL SC SCH (22:00)
[2023-09-22 22:10] VITALS: BP 158/75
[2023-09-23 03:00] VITALS: BP 92/25
[2023-09-23 05:34] VITALS: BP 123/38
[2023-09-23 06:55] LABS: BASO # 0.1 10*3/uL (0.0-0.1); BASO % 0.5 % (0.0-1.0); EOS # 0.3 10*3/uL (0.0-0.4); EOS % 2.5 % (1.0-4.0); HEMATOCRIT 26.9 % (37.0-47.0); LYMPH # 1.2 10*3/uL (1.3-4.4); LYMPH % 12.2 % (27.0-41.0); MEAN CELL VOLUME 88.8 fl (81.0-99.0); MEAN CORPUSCULAR HGB 28.1 pg (27.0-31.0); MEAN CORPUSCULAR HGB CONC 31.6 g/dl (33.0-37.0); MEAN PLATELET VOLUME 11.3 fl (9.6-12.3); MONO # 0.7 10*3/uL (0.1-1.0); MONO % 6.9 % (3.0-9.0); NEUT # 7.8 10*3/uL (2.3-7.9); NEUT % 76.7 % (47.0-73.0); PLATELET COUNT AUTOMATED 164 10*3/uL (130-400); RED BLOOD COUNT 3.03 10*6/uL (4.10-5.10); RED CELL DISTRI WIDTH 13.7 % (0-14.5); WHITE BLOOD COUNT 10.2 10*3/uL (4.8-10.8)
[2023-09-23 07:11] LABS: POTASSIUM 4.3 mmol/L (3.4-5.1)
[2023-09-23] MEDS ORDERED: RIVAROXABAN 15 MG TAB PO SCH (08:00)
[2023-09-23 09:05] VITALS: BP 117/50
[2023-09-23] MEDS ORDERED: NYSTATIN 15 GM BOT T SCH (14:00)
[2023-09-23 15:46] VITALS: BP 100/50
[2023-09-23 18:04] VITALS: BP 152/82
[2023-09-23 20:00] VITALS: BP 103/32
[2023-09-24] VITALS: BP 102/40
[2023-09-24] MEDS ORDERED: FOAM BANDAGE 1 EACH BANDAGE T ONE (05:37)
[2023-09-24] MEDS ORDERED: FOAM BANDAGE HEEL T ONE (05:37)
[2023-09-24] MEDS ORDERED: FOAM BANDAGE 5X5 T ONE (05:37)
[2023-09-24 06:06] LABS: BASO # 0.1 10*3/uL (0.0-0.1); BASO % 0.7 % (0.0-1.0); EOS # 0.2 10*3/uL (0.0-0.4); EOS % 3.1 % (1.0-4.0); HEMATOCRIT 24.6 % (37.0-47.0); LYMPH # 1.4 10*3/uL (1.3-4.4); LYMPH % 21.2 % (27.0-41.0); MEAN CELL VOLUME 89.5 fl (81.0-99.0); MEAN CORPUSCULAR HGB 28.4 pg (27.0-31.0); MEAN CORPUSCULAR HGB CONC 31.7 g/dl (33.0-37.0); MEAN PLATELET VOLUME 11.5 fl (9.6-12.3); MONO # 0.5 10*3/uL (0.1-1.0); MONO % 6.8 % (3.0-9.0); NEUT # 4.5 10*3/uL (2.3-7.9); NEUT % 67.3 % (47.0-73.0); PLATELET COUNT AUTOMATED 142 10*3/uL (130-400); RED BLOOD COUNT 2.75 10*6/uL (4.10-5.10); RED CELL DISTRI WIDTH 13.8 % (0-14.5); WHITE BLOOD COUNT 6.8 10*3/uL (4.8-10.8)
[2023-09-24 08:00] VITALS: BP 103/51
[2023-09-24 12:00] VITALS: BP 90/48
[2023-09-24] MEDS ORDERED: LORazepam 0.5 MG TAB PO PRN (12:10)
[2023-09-24] MEDS ORDERED: SODIUM CHLORIDE 0.9% 500 ML IV ONE (12:10)
[2023-09-24] MEDS ORDERED: busPIRone Hydrochloride 10 MG TAB PO SCH (14:00)
[2023-09-24 15:58] LABS: BASO % 0.4 % (0.0-1.0); EOS # 0.2 10*3/uL (0.0-0.4); EOS % 3.1 % (1.0-4.0); HEMATOCRIT 24.8 % (37.0-47.0); LYMPH # 1.4 10*3/uL (1.3-4.4); LYMPH % 20.4 % (27.0-41.0); MEAN CELL VOLUME 89.2 fl (81.0-99.0); MEAN CORPUSCULAR HGB 28.1 pg (27.0-31.0); MEAN CORPUSCULAR HGB CONC 31.5 g/dl (33.0-37.0); MEAN PLATELET VOLUME 10.5 fl (9.6-12.3); MONO # 0.5 10*3/uL (0.1-1.0); MONO % 6.6 % (3.0-9.0); NEUT # 4.7 10*3/uL (2.3-7.9); NEUT % 68.9 % (47.0-73.0); PLATELET COUNT AUTOMATED 148 10*3/uL (130-400); RED BLOOD COUNT 2.78 10*6/uL (4.10-5.10); RED CELL DISTRI WIDTH 13.6 % (0-14.5); WHITE BLOOD COUNT 6.8 10*3/uL (4.8-10.8)
[2023-09-24 16:00] VITALS: BP 121/53
[2023-09-24 20:00] VITALS: BP 120/62
[2023-09-24] MEDS ORDERED: Insulin Glargine, Recombinan 1 UNIT/0.01 ML SC SCH (22:00)
[2023-09-25] VITALS: BP 103/43
[2023-09-25 06:03] LABS: BASO # 0.1 10*3/uL (0.0-0.1); BASO % 0.8 % (0.0-1.0); EOS # 0.3 10*3/uL (0.0-0.4); EOS % 4.4 % (1.0-4.0); HEMATOCRIT 25.7 % (37.0-47.0); LYMPH # 1.5 10*3/uL (1.3-4.4); LYMPH % 24.1 % (27.0-41.0); MEAN CELL VOLUME 91.8 fl (81.0-99.0); MEAN CORPUSCULAR HGB 27.9 pg (27.0-31.0); MEAN CORPUSCULAR HGB CONC 30.4 g/dl (33.0-37.0); MEAN PLATELET VOLUME 11.4 fl (9.6-12.3); MONO # 0.6 10*3/uL (0.1-1.0); MONO % 8.6 % (3.0-9.0); NEUT # 3.9 10*3/uL (2.3-7.9); NEUT % 61.2 % (47.0-73.0); PLATELET COUNT AUTOMATED 157 10*3/uL (130-400); RED CELL DISTRI WIDTH 13.4 % (0-14.5); WHITE BLOOD COUNT 6.4 10*3/uL (4.8-10.8)
[2023-09-25 06:34] LABS: BUN 22 mg/dl (9-23); CHLORIDE 108 mmol/L (98-107); POTASSIUM 4.6 mmol/L (3.4-5.1)
[2023-09-25 08:00] VITALS: BP 119/50
[2023-09-25] MEDS ORDERED: ATORVASTATIN CALCIUM 40 MG TABLET PO SCH (10:00)
[2023-09-25] MEDS ORDERED: ASPIRIN, CHEWABLE 81 MG TAB PO SCH (10:00)
[2023-09-25] MEDS ORDERED: RIVAROXABAN 15 MG TAB PO SCH (10:55)
[2023-09-25 12:00] VITALS: BP 132/60
[2023-09-25] MEDS ORDERED: Piperacillin Sodium/Tazobact 50 ML IV SCH (14:00)
[2023-09-25 15:53] VITALS: BP 131/60
[2023-09-25 20:00] VITALS: BP 105/52
[2023-09-26 00:06] VITALS: BP 122/51
[2023-09-26 03:32] LABS: BILIRUBIN 3+ (Negative); BLOOD 1+ (Negative); CLARITY Turbid (Clear); COLOR Red (Yellow); GLUCOSE Negative (Negative); KETONE Trace (Negative); LEUKO ESTERASE 3+ (Negative); NITRITE Positive (Negative); SPECIFIC GRAVITY >= 1.030 (1.001-1.030); UROBILINOGEN 0.2 E.U./dl (0.0-1.0)
[2023-09-26 03:40] LABS: BACTERIA 3+; RBC TNTC rbc/hpf (0-2)
[2023-09-26 07:18] LABS: BASO # 0.1 10*3/uL (0.0-0.1); BASO % 0.7 % (0.0-1.0); EOS # 0.3 10*3/uL (0.0-0.4); HEMATOCRIT 24.8 % (37.0-47.0); LYMPH # 1.7 10*3/uL (1.3-4.4); LYMPH % 24.3 % (27.0-41.0); MEAN CELL VOLUME 90.5 fl (81.0-99.0); MEAN CORPUSCULAR HGB 28.1 pg (27.0-31.0); MEAN PLATELET VOLUME 11.3 fl (9.6-12.3); MONO # 0.5 10*3/uL (0.1-1.0); MONO % 6.6 % (3.0-9.0); NEUT # 4.2 10*3/uL (2.3-7.9); NEUT % 62.2 % (47.0-73.0); PLATELET COUNT AUTOMATED 166 10*3/uL (130-400); RED BLOOD COUNT 2.74 10*6/uL (4.10-5.10); RED CELL DISTRI WIDTH 13.4 % (0-14.5); WHITE BLOOD COUNT 6.8 10*3/uL (4.8-10.8)
[2023-09-26 07:54] LABS: BUN 18 mg/dl (9-23); CHLORIDE 108 mmol/L (98-107); POTASSIUM 4.9 mmol/L (3.4-5.1)
[2023-09-26 08:00] VITALS: BP 119/60
[2023-09-26] MEDS ORDERED: HEPARIN SODIUM 250 ML IV SCH (09:50)
[2023-09-26 12:00] VITALS: BP 128/46
[2023-09-26] MEDS ORDERED: BARIUM SULFATE 2% 450 ML BOT PO SCH (15:00)
[2023-09-26 16:00] VITALS: BP 118/41
[2023-09-26 20:00] VITALS: BP 130/49
== END 2023-09-26 22:36 | disposition short-term general hospital (02) | DRG 299 ==
LOC: ED 11:18 → 4E 13:34 → EDHOLD 13:34 → 4E 09-23 16:43
PROVIDERS: Physician Assistant Medical; Student in an Organized Health Care Education/Training Program; ADMIT Internal Medicine; ATTEND Internal Medicine
PROC: 0HBLXZZ Excision of Left Lower Leg Skin, External Approach (ICD-10-PCS; principal; 2023-09-24)
PROC: 0HBRXZZ Excision of Toe Nail, External Approach (ICD-10-PCS; 2023-09-24)
PROC: 0HBRXZZ Excision of Toe Nail, External Approach (ICD-10-PCS; 2023-09-24)
PROC: 0HBRXZZ Excision of Toe Nail, External Approach (ICD-10-PCS; 2023-09-24)
PROC: 0HBRXZZ Excision of Toe Nail, External Approach (ICD-10-PCS; 2023-09-24)
PROC: 0HBRXZZ Excision of Toe Nail, External Approach (ICD-10-PCS; 2023-09-24)
PROC: 0HBRXZZ Excision of Toe Nail, External Approach (ICD-10-PCS; 2023-09-24)
PROC: 0HBRXZZ Excision of Toe Nail, External Approach (ICD-10-PCS; 2023-09-24)
PROC: 0HBRXZZ Excision of Toe Nail, External Approach (ICD-10-PCS; 2023-09-24)
PROC: 0HBRXZZ Excision of Toe Nail, External Approach (ICD-10-PCS; 2023-09-24)
PROC: 0HBRXZZ Excision of Toe Nail, External Approach (ICD-10-PCS; 2023-09-24)
DX: I82.412 Acute embolism and thrombosis of left femoral vein (principal); N17.0 Acute kidney failure with tubular necrosis; F32.1 Major depressive disorder, single episode, moderate; L03.116 Cellulitis of left lower limb; I50.22 Chronic systolic (congestive) heart failure; I13.0 Hypertensive heart and chronic kidney disease with heart failure and stage 1 through stage 4 chronic kidney disease, or unspecified chronic kidney disease; L03.115 Cellulitis of right lower limb; Z68.44 Body mass index [BMI] 60.0-69.9, adult; Z66 Do not resuscitate; E11.65 Type 2 diabetes mellitus with hyperglycemia; N18.32 Chronic kidney disease, stage 3b; D50.9 Iron deficiency anemia, unspecified; E11.22 Type 2 diabetes mellitus with diabetic chronic kidney disease; F41.1 Generalized anxiety disorder; E78.5 Hyperlipidemia, unspecified; L89.156 Pressure-induced deep tissue damage of sacral region; L89.896 Pressure-induced deep tissue damage of other site; N93.9 Abnormal uterine and vaginal bleeding, unspecified; I87.2 Venous insufficiency (chronic) (peripheral); B95.2 Enterococcus as the cause of diseases classified elsewhere; Z79.4 Long term (current) use of insulin; Z86.73 Personal history of transient ischemic attack (TIA), and cerebral infarction without residual deficits; Z98.891 History of uterine scar from previous surgery; Z82.49 Family history of ischemic heart disease and other diseases of the circulatory system; Z79.82 Long term (current) use of aspirin; Z79.899 Other long term (current) drug therapy

== ENCOUNTER 2023-10-18 19:21 | Emergency (ER) | payer MEDICARE, OTHER ==
[~2023-10-18] VITALS: Ht 172.7 cm; Wt 149.7 kg
[~2023-10-18 19:21] MED LIST changes: +ALDACTONE25 MG PO
[2023-10-18] MEDS ORDERED: CEPHALEXIN 500 MG CAP PO ONE (19:30)
[2023-10-18] MEDS ORDERED: Bacitracin Zinc 14 GM TUBE T ONE (19:30)
[2023-10-18] MEDS ORDERED: Lidocaine Hydrochloride 2% 10 ML AMP SC ONE (19:30)
[2023-10-18] MEDS ORDERED: Tdap Vaccine 0.5 ML SYR (Adult Vaccine) IM ONE (19:30)
[2023-10-18] MEDS ORDERED: CEPHALEXIN500 M1 PO (20:16)
== END 2023-10-18 20:19 | disposition home or self-care (01) ==
LOC: ED 19:21
DX: S81.812A Laceration without foreign body, left lower leg, initial encounter (principal); Z86.718 Personal history of other venous thrombosis and embolism; D64.9 Anemia, unspecified; E78.5 Hyperlipidemia, unspecified; E11.22 Type 2 diabetes mellitus with diabetic chronic kidney disease; I12.9 Hypertensive chronic kidney disease with stage 1 through stage 4 chronic kidney disease, or unspecified chronic kidney disease; N18.30 Chronic kidney disease, stage 3 unspecified; E11.65 Type 2 diabetes mellitus with hyperglycemia; Z98.890 Other specified postprocedural states; W19.XXXA Unspecified fall, initial encounter; Y93.89 Activity, other specified; Y92.89 Other specified places as the place of occurrence of the external cause; Y99.8 Other external cause status

== ENCOUNTER → 2023-11-04 | Outpatient (CLI) | payer MEDICARE, OTHER ==
[~2023-11-04] MED LIST changes: +CEPHALEXIN500 M1 PO
== END | disposition home or self-care (01) ==
LOC: WOUNDCARE 08:26
PROVIDERS: ATTEND Nurse Practitioner Family
DX: T81.31XA Disruption of external operation (surgical) wound, not elsewhere classified, initial encounter (principal); S81.812A Laceration without foreign body, left lower leg, initial encounter; I87.2 Venous insufficiency (chronic) (peripheral); I10 Essential (primary) hypertension; E11.21 Type 2 diabetes mellitus with diabetic nephropathy; M48.00 Spinal stenosis, site unspecified; F32.A Depression, unspecified; Z90.710 Acquired absence of both cervix and uterus; Z86.73 Personal history of transient ischemic attack (TIA), and cerebral infarction without residual deficits; Z86.718 Personal history of other venous thrombosis and embolism; W19.XXXA Unspecified fall, initial encounter; Y93.89 Activity, other specified; Y92.89 Other specified places as the place of occurrence of the external cause; Y99.8 Other external cause status; Y92.238 Other place in hospital as the place of occurrence of the external cause; Y83.8 Other surgical procedures as the cause of abnormal reaction of the patient, or of later complication, without mention of misadventure at the time of the procedure

== ENCOUNTER → 2023-11-14 | Outpatient (CLI) | payer MEDICARE, OTHER | END | disposition home or self-care (01) | LOC: WOUNDCARE 01:18 | PROVIDERS: ATTEND Nurse Practitioner Family | DX: T81.30XD Disruption of wound, unspecified, subsequent encounter (principal); S81.812A Laceration without foreign body, left lower leg, initial encounter; I87.2 Venous insufficiency (chronic) (peripheral); E11.21 Type 2 diabetes mellitus with diabetic nephropathy; I10 Essential (primary) hypertension; M48.00 Spinal stenosis, site unspecified; F32.A Depression, unspecified; Z86.718 Personal history of other venous thrombosis and embolism; Z86.73 Personal history of transient ischemic attack (TIA), and cerebral infarction without residual deficits; Z90.710 Acquired absence of both cervix and uterus; X58.XXXA Exposure to other specified factors, initial encounter; Y93.89 Activity, other specified; Y92.89 Other specified places as the place of occurrence of the external cause; Y99.8 Other external cause status; Y83.8 Other surgical procedures as the cause of abnormal reaction of the patient, or of later complication, without mention of misadventure at the time of the procedure ==

== ENCOUNTER → 2023-11-21 | Outpatient (CLI) | payer MEDICARE, OTHER | END | disposition home or self-care (01) | LOC: WOUNDCARE 01:14 | PROVIDERS: ATTEND Nurse Practitioner Family | DX: T81.30XD Disruption of wound, unspecified, subsequent encounter (principal); S81.812D Laceration without foreign body, left lower leg, subsequent encounter; E11.622 Type 2 diabetes mellitus with other skin ulcer; L97.812 Non-pressure chronic ulcer of other part of right lower leg with fat layer exposed; E11.21 Type 2 diabetes mellitus with diabetic nephropathy; I87.2 Venous insufficiency (chronic) (peripheral); I10 Essential (primary) hypertension; M48.00 Spinal stenosis, site unspecified; F32.A Depression, unspecified; Z86.73 Personal history of transient ischemic attack (TIA), and cerebral infarction without residual deficits; Z90.710 Acquired absence of both cervix and uterus; Z79.4 Long term (current) use of insulin; Z79.899 Other long term (current) drug therapy; W19.XXXD Unspecified fall, subsequent encounter; Y83.8 Other surgical procedures as the cause of abnormal reaction of the patient, or of later complication, without mention of misadventure at the time of the procedure ==

== ENCOUNTER → 2023-11-27 | Outpatient (CLI) | payer MEDICARE, OTHER | END | disposition home or self-care (01) | LOC: WOUNDCARE 02:04 | PROVIDERS: ATTEND Nurse Practitioner Family | DX: T81.30XD Disruption of wound, unspecified, subsequent encounter (principal); S81.812D Laceration without foreign body, left lower leg, subsequent encounter; S71.112A Laceration without foreign body, left thigh, initial encounter; E11.622 Type 2 diabetes mellitus with other skin ulcer; L97.812 Non-pressure chronic ulcer of other part of right lower leg with fat layer exposed; E11.21 Type 2 diabetes mellitus with diabetic nephropathy; I87.2 Venous insufficiency (chronic) (peripheral); I10 Essential (primary) hypertension; M48.00 Spinal stenosis, site unspecified; F32.A Depression, unspecified; Z86.73 Personal history of transient ischemic attack (TIA), and cerebral infarction without residual deficits; Z90.710 Acquired absence of both cervix and uterus; Z79.4 Long term (current) use of insulin; Z79.899 Other long term (current) drug therapy; W19.XXXD Unspecified fall, subsequent encounter; X58.XXXA Exposure to other specified factors, initial encounter; Y93.89 Activity, other specified; Y92.89 Other specified places as the place of occurrence of the external cause; Y99.8 Other external cause status; Y83.8 Other surgical procedures as the cause of abnormal reaction of the patient, or of later complication, without mention of misadventure at the time of the procedure ==

== ENCOUNTER → 2023-12-04 | Outpatient (CLI) | payer MEDICARE, OTHER ==
[~2023-12-04] MED LIST changes: +ADULT ASPIRIN R81 MG PO; +DULCOLAX STOOL100 M1 PO; +GLUCAGON EMERGEN1 M2 IJ; +POTASSIUM CHLO10 ME5 PO; +RIVASTIGMINE TAR3 M1 PO; +STIMULANT LAXA1 EACH PO; +XARE20MG PO
== END | disposition home or self-care (01) ==
LOC: WOUNDCARE 02:52
PROVIDERS: ATTEND Nurse Practitioner Family
DX: T81.30XD Disruption of wound, unspecified, subsequent encounter (principal); S81.812D Laceration without foreign body, left lower leg, subsequent encounter; S71.112D Laceration without foreign body, left thigh, subsequent encounter; S80.822A Blister (nonthermal), left lower leg, initial encounter; E11.622 Type 2 diabetes mellitus with other skin ulcer; L97.812 Non-pressure chronic ulcer of other part of right lower leg with fat layer exposed; E11.21 Type 2 diabetes mellitus with diabetic nephropathy; I87.2 Venous insufficiency (chronic) (peripheral); I10 Essential (primary) hypertension; M48.00 Spinal stenosis, site unspecified; F32.A Depression, unspecified; Z86.73 Personal history of transient ischemic attack (TIA), and cerebral infarction without residual deficits; Z90.710 Acquired absence of both cervix and uterus; Z79.4 Long term (current) use of insulin; Z79.899 Other long term (current) drug therapy; W19.XXXD Unspecified fall, subsequent encounter; Y83.8 Other surgical procedures as the cause of abnormal reaction of the patient, or of later complication, without mention of misadventure at the time of the procedure; X58.XXXA Exposure to other specified factors, initial encounter; Y93.89 Activity, other specified; Y92.89 Other specified places as the place of occurrence of the external cause; Y99.8 Other external cause status

== ENCOUNTER 2023-12-08 15:58 | Inpatient (IN) | payer MEDICARE, OTHER ==
[~2023-12-08] VITALS: Ht 168 cm; Wt 151.5 kg
[~2023-12-08 15:58] MED LIST changes: -ADULT ASPIRIN R81 MG PO; -DULCOLAX STOOL100 M1 PO; -GLUCAGON EMERGEN1 M2 IJ; -POTASSIUM CHLO10 ME5 PO; -RIVASTIGMINE TAR3 M1 PO; -STIMULANT LAXA1 EACH PO; -XARE20MG PO
[2023-12-08] MEDS ORDERED: Piperacillin Sodium/Tazobact 50 ML IV ONE (16:10)
[2023-12-08] MEDS ORDERED: Vancomycin Hydrochloride 250 ML IV ONE (16:10)
[2023-12-08 16:12] VITALS: BP 171/65
[2023-12-08 16:16] LABS: BASO # 0.1 10*3/uL (0.0-0.1); BASO % 0.7 % (0.0-1.0); EOS # 0.2 10*3/uL (0.0-0.4); HEMATOCRIT 30.5 % (37.0-47.0); LYMPH # 1.2 10*3/uL (1.3-4.4); LYMPH % 16.6 % (27.0-41.0); MEAN CELL VOLUME 84.3 fl (81.0-99.0); MEAN CORPUSCULAR HGB 24.6 pg (27.0-31.0); MEAN CORPUSCULAR HGB CONC 29.2 g/dl (33.0-37.0); MONO # 0.4 10*3/uL (0.1-1.0); MONO % 5.8 % (3.0-9.0); NEUT # 5.4 10*3/uL (2.3-7.9); NEUT % 73.2 % (47.0-73.0); PLATELET COUNT AUTOMATED 199 10*3/uL (130-400); RED BLOOD COUNT 3.62 10*6/uL (4.10-5.10); RED CELL DISTRI WIDTH 15.6 % (0-14.5); WHITE BLOOD COUNT 7.4 10*3/uL (4.8-10.8)
[2023-12-08] MEDS ORDERED: Phenylephrine HydrochloridE 0.5% NASAL 15 ML BOTTLE NAS ONE (16:20)
[2023-12-08 16:35] LABS: ALKALINE PHOSPHATASE 191 U/L (46-116); BUN 25 mg/dl (9-23); CHLORIDE 104 mmol/L (98-107); POTASSIUM 4.6 mmol/L (3.4-5.1); TOTAL PROTEIN 6.7 gm/dL (6.0-8.0)
[2023-12-08 16:38] LABS: SGPT/ALT < 7 U/L (5-49)
[2023-12-08] MEDS ORDERED: Magnesium Hydroxide 30 ML UDC PO PRN (17:45)
[2023-12-08] MEDS ORDERED: ACETAMINOPHEN 325 MG TAB PO PRN (17:45)
[2023-12-08] MEDS ORDERED: ACETAMINOPHEN 650 MG SUPP R PRN (17:45)
[2023-12-08] MEDS ORDERED: BISACODYL 10 MG SUPP R PRN (17:45)
[2023-12-08] MEDS ORDERED: BISACODYL 5 MG TAB PO PRN (17:45)
[2023-12-08] MEDS ORDERED: Ondansetron Hydrochloride 4 MG/2 ML VIAL IV PRN (17:45)
[2023-12-08] MEDS ORDERED: DEXTROSE 10 % IN WATER 250 ML IV PRN (18:45)
[2023-12-08] MEDS ORDERED: Piperacillin Sodium/Tazobact 50 ML IV SCH (22:00)
[2023-12-08] MEDS ORDERED: INSULIN LISPRO 1 UNIT/0.01 ML SQ SCH (22:00)
[2023-12-09] VITALS: BP 115/53
[2023-12-09] MEDS ORDERED: ADULT ASPIRIN R81 MG PO (00:40)
[2023-12-09] MEDS ORDERED: DULCOLAX STOOL100 M1 PO (00:41)
[2023-12-09] MEDS ORDERED: POTASSIUM CHLO10 ME5 PO (00:43)
[2023-12-09] MEDS ORDERED: RIVASTIGMINE TAR3 M1 PO (00:44)
[2023-12-09] MEDS ORDERED: STIMULANT LAXA1 EACH PO (00:45)
[2023-12-09] MEDS ORDERED: VITAMIN D350 MC2 PO (00:46)
[2023-12-09] MEDS ORDERED: XARE20MG PO (00:47)
[2023-12-09] MEDS ORDERED: GLUCAGON EMERGEN1 M2 IJ (00:49)
[2023-12-09] MEDS ORDERED: VANCOMYCIN/WATER FOR INJ (PEG) 400 ML IV SCH (06:00)
[2023-12-09 06:57] LABS: BASO % 0.6 % (0.0-1.0); EOS # 0.3 10*3/uL (0.0-0.4); EOS % 4.2 % (1.0-4.0); HEMATOCRIT 27.2 % (37.0-47.0); LYMPH # 1.7 10*3/uL (1.3-4.4); LYMPH % 23.3 % (27.0-41.0); MEAN CELL VOLUME 82.7 fl (81.0-99.0); MEAN CORPUSCULAR HGB 24.9 pg (27.0-31.0); MEAN CORPUSCULAR HGB CONC 30.1 g/dl (33.0-37.0); MEAN PLATELET VOLUME 11.8 fl (9.6-12.3); MONO # 0.5 10*3/uL (0.1-1.0); MONO % 6.7 % (3.0-9.0); NEUT # 4.7 10*3/uL (2.3-7.9); NEUT % 64.8 % (47.0-73.0); PLATELET COUNT AUTOMATED 172 10*3/uL (130-400); RED BLOOD COUNT 3.29 10*6/uL (4.10-5.10); RED CELL DISTRI WIDTH 15.7 % (0-14.5); WHITE BLOOD COUNT 7.2 10*3/uL (4.8-10.8)
[2023-12-09 07:26] LABS: ALKALINE PHOSPHATASE 157 U/L (46-116); BUN 20 mg/dl (9-23); CHLORIDE 106 mmol/L (98-107); POTASSIUM 4.1 mmol/L (3.4-5.1); TOTAL PROTEIN 5.8 gm/dL (6.0-8.0)
[2023-12-09 07:45] LABS: SGPT/ALT < 7 U/L (5-49)
[2023-12-09 08:00] VITALS: BP 109/56
[2023-12-09] MEDS ORDERED: LORazepam 0.5 MG TAB PO PRN (08:45)
[2023-12-09] MEDS ORDERED: METOPROLOL SUCCINATE XR 50 MG TAB PO SCH (10:00)
[2023-12-09] MEDS ORDERED: Losartan Potassium 50 MG TAB PO SCH (10:00)
[2023-12-09] MEDS ORDERED: Duloxetine Hydrochloride 30 MG CAP PO SCH (10:00)
[2023-12-09] MEDS ORDERED: busPIRone Hydrochloride 10 MG TAB PO SCH ×2 (10:00→22:00)
[2023-12-09] MEDS ORDERED: Enoxaparin Sodium 40 MG/0.4 ML SYR SC SCH (10:00)
[2023-12-09] MEDS ORDERED: ASPIRIN ENTERIC COATED 81 MG TAB PO SCH (10:00)
[2023-12-09] MEDS ORDERED: SPIRONOLACTONE 25 MG TAB PO SCH (10:00)
[2023-12-09] MEDS ORDERED: ATORVASTATIN CALCIUM 40 MG TABLET PO SCH (10:00)
[2023-12-09] MEDS ORDERED: BUMETANIDE 1 MG TAB PO SCH (10:00)
[2023-12-09 12:00] VITALS: BP 161/89
[2023-12-09] MEDS ORDERED: FOAM BANDAGE 1 EACH BANDAGE T ONE (18:25)
[2023-12-09] MEDS ORDERED: FOAM BANDAGE 5X5 T ONE ×2 (18:25→18:48)
[2023-12-09] MEDS ORDERED: FOAM BANDAGE HEEL T ONE (18:25)
[2023-12-09 20:00] VITALS: BP 126/48
[2023-12-09] MEDS ORDERED: NYSTATIN 15 GM BOT T SCH (22:00)
[2023-12-09] MEDS ORDERED: Insulin Glargine, Recombinan 1 UNIT/0.01 ML SC SCH (22:00)
[2023-12-10] VITALS: BP 112/45
[2023-12-10 06:09] LABS: BASO % 0.5 % (0.0-1.0); EOS # 0.4 10*3/uL (0.0-0.4); EOS % 5.4 % (1.0-4.0); HEMATOCRIT 29.7 % (37.0-47.0); LYMPH # 1.5 10*3/uL (1.3-4.4); LYMPH % 19.2 % (27.0-41.0); MEAN CELL VOLUME 81.8 fl (81.0-99.0); MEAN CORPUSCULAR HGB 25.3 pg (27.0-31.0); MEAN PLATELET VOLUME 11.3 fl (9.6-12.3); MONO # 0.5 10*3/uL (0.1-1.0); MONO % 6.1 % (3.0-9.0); NEUT # 5.3 10*3/uL (2.3-7.9); NEUT % 68.3 % (47.0-73.0); PLATELET COUNT AUTOMATED 209 10*3/uL (130-400); RED BLOOD COUNT 3.63 10*6/uL (4.10-5.10); RED CELL DISTRI WIDTH 15.5 % (0-14.5); WHITE BLOOD COUNT 7.7 10*3/uL (4.8-10.8)
[2023-12-10 07:11] LABS: ALKALINE PHOSPHATASE 179 U/L (46-116); BUN 22 mg/dl (9-23); CHLORIDE 103 mmol/L (98-107); POTASSIUM 4.6 mmol/L (3.4-5.1); TOTAL PROTEIN 6.8 gm/dL (6.0-8.0)
[2023-12-10 07:28] LABS: SGPT/ALT < 7 U/L (5-49)
[2023-12-10 08:00] VITALS: BP 118/50
[2023-12-10] MEDS ORDERED: RIVAROXABAN 20 MG TAB PO SCH (10:00)
[2023-12-10 12:00] VITALS: BP 101/49
[2023-12-10] MEDS ORDERED: NYAMYC15 GM T (13:14)
[2023-12-10] MEDS ORDERED: DOXYCYCLINE HY100 M3 PO (13:14)
== END 2023-12-10 18:02 | DRG 602 ==
LOC: ED 15:58 → 4E 17:07 → EDHOLD 17:07 → 4E 12-09 13:51
PROVIDERS: Student in an Organized Health Care Education/Training Program; ADMIT Internal Medicine; ATTEND Internal Medicine
DX: L03.116 Cellulitis of left lower limb (principal); E43 Unspecified severe protein-calorie malnutrition; I13.0 Hypertensive heart and chronic kidney disease with heart failure and stage 1 through stage 4 chronic kidney disease, or unspecified chronic kidney disease; I50.22 Chronic systolic (congestive) heart failure; Z68.43 Body mass index [BMI] 50.0-59.9, adult; E11.22 Type 2 diabetes mellitus with diabetic chronic kidney disease; N18.30 Chronic kidney disease, stage 3 unspecified; F41.1 Generalized anxiety disorder; E78.5 Hyperlipidemia, unspecified; F32.9 Major depressive disorder, single episode, unspecified; E66.01 Morbid (severe) obesity due to excess calories; E11.69 Type 2 diabetes mellitus with other specified complication; E11.65 Type 2 diabetes mellitus with hyperglycemia; D64.9 Anemia, unspecified; I69.320 Aphasia following cerebral infarction; Z86.718 Personal history of other venous thrombosis and embolism; Z84.89 Family history of other specified conditions; Z79.899 Other long term (current) drug therapy